=== PATIENT | male | born 2005 | race Hispanic/Latino ===

== ENCOUNTER 2023-12-07 15:55 | Emergency (ER) | payer SELFPAY | END 2023-12-07 16:30 | disposition home or self-care (01) | LOC: CSHERS 15:55 | DX: H92.01 Otalgia, right ear (principal) | CPT/HCPCS: 99282 ==

== ENCOUNTER → 2024-03-01 | Emergency (ER) | payer SELFPAY | LOC: CSHERS 13:57 | DX: H00.011 Hordeolum externum right upper eyelid (principal); L03.213 Periorbital cellulitis | CPT/HCPCS: 99283 ==